=== PATIENT | female | born 1990 | race Hispanic/Latino ===

== ENCOUNTER 2017-09-14 12:18 | Emergency (ER) | payer SELFPAY ==
[2017-09-14 14:06] LABS: Absolute Lymphocytes (CBC) 1.7 K/uL (0.7-4.9); Absolute Monocytes 0.8 K/uL (0.1-1.3); Absolute Neutrophil 8.2 K/uL (1.8-8.0); Basophils % 0.4 % (0-1.3); Eosinophils % 1.1 % (0-4.4); Hematocrit 41.2 % (36.0-45.0); Lymphocytes % 15.9 % (15.3-44.8); MCH 31.2 pg (27.0-35.0); MCV 93.2 fL (80-100); MPV 9.6 fL (7.6-11.3); Monocytes % 7.6 % (3.3-12.3); RBC Red Blood Cell Count 4.42 M/uL (3.86-4.86)
--- NOTE | 2017-09-14 15:52 | ER ---
Nurse's Notes [facility] Name: Lobo Davenport Age: 27 yrs Sex: Female : 1990 Arrival Date: 09/14/2017 Time: 12:21 Bed 17 Private MD: Diagnosis: Threatened Presentation: 09/14 12:44 Presenting complaint: Patient states: "I have some discharge today that is brown. I was lk1 here two weeks ago and everything was normal. I have fibroids too and one is big. I think I need another ultrasound.". Transition of care: patient was not received from another setting of care. Onset of symptoms was September 14, 2017 at 08:00. Care prior to arrival: None. 12:44 Method Of Arrival: Ambulatory lk1 12:44 Acuity: MARIBEL 3 lk1 Triage Assessment: 12:46 General: Appears in no apparent distress. General: Behavior is calm, cooperative, lk1 appropriate for age. Pain: Denies pain. : Reports vaginal bleeding that is brown. 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 - Social history:: Smoking status: Patient/guardian denies using tobacco. Screenin:05 Abuse screen: Denies threats or abuse. Nutritional screening: No deficits noted. rs2 Tuberculosis screening: No symptoms or risk factors identified. Fall Risk None identified. Assessment: 13:05 Obstetrical Assessment: General assessment: awake and alert, anxious, skin warm and rs2 dry, respirations even and unlabored, Patient reports Pt states, "I was here 2 weeks ago for the same thing and they said I had fibroid tumors. Today I have had some dark brown spots when I wipe. I just want to check it out and make sure." Pt denies pain.. General: Appears in no apparent distress. comfortable, well groomed, well developed, Behavior is calm, cooperative, appropriate for age. Pain: Denies pain. Neuro: No deficits noted. Cardiovascular: No deficits noted. Respiratory: No deficits noted. GI: No deficits noted. Musculoskeletal: No deficits noted. Vital Signs: 12:46 BP 113 / 65; Pulse 72; Resp 14; Temp 97.4(TE); Pulse Ox 100% on R/A; Weight 70.31 kg lk1 (R); Height 5 ft. 0 in. (152.40 cm) (R); Pain 0/10; 15:11 BP 120 / 63; Pulse 67; Resp 17; Temp 97.5; Pulse Ox 99% ; Pain 0/10; rs2 12:46 Body Mass Index 30.27 (70.31 kg, 152.40 cm) lk1 Vitals: 16:06 Heart Tones Ultrasound performed at bedside by Dr. Jean. Heartbeat visualized. .rs2 ED Course: 12:21 Patient arrived in ED. rg4 12:45 Triage completed. lk1 12:46 Arm band placed on left wrist. lk1 12:56 Gibson Jean MD is Attending Physician. ps1 13:04 Ayse Phillip is Primary Nurse. rs2 13:05 Patient has correct armband on for positive identification. Bed in low position. Call rs2 light in reach. Side rails up X 1. 15:07 HCG-Quantitative Sent. rs2 15:50 Samantha Baker MD is Referral Physician. ps1 16:04 Assist provider with pelvic exam: Set up pelvic tray. Performed by Gibson Jean MD rs2 Patient tolerated well. Patient did not have IV access during this emergency room visit. Administered Medications: No medications were administered Point of Care Testing: Urine : 16:08 hCG Reading: Positive; rs2 Outcome: 15:51 Discharge ordered by . ps1 16:04 Discharged to home ambulatory, with friend. rs2 16:04 Condition: stable 16:04 Discharge instructions given to patient, Instructed on discharge instructions, follow up and referral plans. Demonstrated understanding of instructions, follow-up care. 16:09 Patient left the ED. rs2 Signatures: Vero Gong RN RN lk1 Gia Aguilar rgAyse Gan rs2 Gibson Jean MD MD ps1
--- NOTE | 2017-09-14 15:52 | EDPHYS ---
Physician Documentation [facility] Name: Lobo Davenport Age: 27 yrs Sex: Female : 1990 Arrival Date: 09/14/2017 Time: 12:21 Bed 17 Private MD: ED Physician Gibson Jean HPI: 09/14 14:15 This 27 yrs old Female presents to ER via Ambulatory with complaints of ps1 Vaginal Bleeding, + Preg <12wks. 14:15 The patient presents to the emergency department with vaginal bleeding, that is light. ps1 The estimated gestational age is 8 weeks. course: Ultrasound: the patient had an ultrasound, which was normal. Previous pregnancies: the patient has never been . Associated signs and symptoms: The patient has no apparent associated signs or symptoms. was seen and evaluated for same. Does not have insurance so hasn't followed up with Dr. Baker for evaluation. Had a normal IUP on US with previous visit. Now having scant amount of bleeding, return for same symptoms. No other symptoms verbalized. Does have a history of fibroid uterus. . 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 - Social history:: Smoking status: Patient/guardian denies using tobacco. ROS: 14:15 Constitutional: Negative for fever, chills, and weight loss, Eyes: Negative for injury, ps1 pain, redness, and discharge, Neck: Negative for injury, pain, and swelling, Cardiovascular: Negative for chest pain, palpitations, and edema, Respiratory: Negative for shortness of breath, cough, wheezing, and pleuritic chest pain, Abdomen/GI: Negative for abdominal pain, nausea, vomiting, diarrhea, and constipation, Back: Negative for injury and pain. 14:15 : Positive for vaginal bleeding, Negative for foul smelling urine, vaginal discharge. Exam: 14:15 Constitutional: This is a well developed, well nourished patient who is awake, alert, ps1 and in no acute distress. Head/Face: Normocephalic, atraumatic. Eyes: Pupils equal round and reactive to light, extra-ocular motions intact. Lids and lashes normal. Conjunctiva and sclera are non-icteric and not injected. Chest/axilla: Normal chest wall appearance and motion. Nontender with no deformity. No lesions are appreciated. Cardiovascular: Regular rate and rhythm. No gallops, murmurs, or rubs. Normal PMI, no JVD. No pulse deficits. Respiratory: Lungs have equal breath sounds bilaterally, clear to auscultation and percussion. No rales, rhonchi or wheezes noted. No increased work of breathing, no retractions or nasal flaring. Abdomen/GI: Soft, non-tender, with normal bowel sounds. No distension or tympany. No guarding or rebound. No evidence of tenderness throughout. Pelvic Exam: Normal external genitalia. Speculum exam with closed cervical os, no discharge or bleeding noted. Bimanual exam with normal adnexa, no adnexal or cervical motion tenderness. POCUS performed transabdominally which demonstrated IUP with appropriate HR. Has moderate size fibroid on right aspect of uterus. Vital Signs: 12:46 BP 113 / 65; Pulse 72; Resp 14; Temp 97.4(TE); Pulse Ox 100% on R/A; Weight 70.31 kg lk1 (R); Height 5 ft. 0 in. (152.40 cm) (R); Pain 0/10; 15:11 BP 120 / 63; Pulse 67; Resp 17; Temp 97.5; Pulse Ox 99% ; Pain 0/10; rs2 12:46 Body Mass Index 30.27 (70.31 kg, 152.40 cm) lk1 MDM: 14:15 Patient medically screened. ps1 14:15 Data reviewed: vital signs, nurses notes. ps1 15:48 Differential diagnosis: threatened Ab, inevitable Ab. ED course: labs WNL. No UTI. HCG ps1 >1M. POCUS +IUP with HR. Closed OS. DX: threatened AB. Stable for DC with pelvic rest. Follow up with Dr. Baker.. 09/14 13:39 Order name: HCG-Quantitative; Complete Time: 15:46 ps1 09/14 13:39 Order name: CBC with Diff; Complete Time: 14:15 ps1 09/14 13:39 Order name: Urine Dipstick-Ancillary (obtain specimen); Complete Time: 14:03 ps1 09/14 13:39 Order name: Pelvic Exam Setup; Complete Time: 14:41 ps1 09/14 14:37 Order name: Urine Dipstick--Ancillary (enter results) bd 09/14 14:37 Order name: Urine --Ancillary (enter results) bd Administered Medications: No medications were administered Point of Care Testing: Urine : 16:08 hCG Reading: Positive; rs2 Disposition: 09/14/17 15:51 Discharged to Home. Impression: Threatened . - Condition is Stable. - Discharge Instructions: Threatened Miscarriage, Pelvic Rest. - Medication Reconciliation Form, Thank You Letter, Antibiotic Education, Prescription Opioid Use form. - Follow up: Samantha Baker MD; When: 1 week; Reason: Recheck today's complaints, Continuance of care, Re-evaluation by your physician. - Problem is an ongoing problem. - Symptoms are unchanged. Signatures: Dispatcher [employer] Vero Orozco RN RN lk1 Ayse Phillip rs2 Gibson Jean MD MD ps1
[2017-09-14 18:18] LABS: Urine Blood 1+ (NEG); Urine Glucose NEGATIVE (NEG); Urine Protein 1+ (NEG)
== END 2017-09-14 16:09 | disposition home or self-care (01) ==
LOC: ER 12:18
DX: Z3A.08 8 weeks gestation of pregnancy; O20.0 Threatened abortion
CPT/HCPCS: 36415; 81003; 81025; 84702; 85025; 99284